=== PATIENT | female | born 1940 | race Caucasian/White ===

== ENCOUNTER 2023-03-09 11:41 | Inpatient (IN) | payer MEDICARE, OTHER ==
[~2023-03-09] VITALS: Ht 162.6 cm; Wt 68.9 kg
--- NOTE | 2023-03-09 11:42 | NUR ---
Dr Carrizales at the bedside for MSE.
[2023-03-09 12:20] LABS: HEMATOCRIT 38.6 % (31.2-41.9); MEAN CORPUSCULAR HEMOGLOBIN 30.3 uug (24.7-32.8); MEAN CORPUSCULAR VOLUME 91.6 fL (75.5-95.3); PLATELET COUNT (AUTO) 180 K/uL (179-408)
--- NOTE | 2023-03-09 12:30 | NUR ---
Pt requested Ensure for lunch. Ensure given and pt drank w/ good appettite. No cc of pain.
[2023-03-09 12:43] LABS: CARBON DIOXIDE 26 mmol/L (21-32); CHLORIDE 105 mmol/L (98-107); CREATININE 0.9 mg/dL (0.6-1.3); POTASSIUM 4.4 mmol/L (3.5-5.1); UREA NITROGEN, BLOOD 29 mg/dL (7-18)
[2023-03-09 12:56] LABS: ALANINE AMINOTRANSFERASE 9 U/L (14-59); ALKALINE PHOSPHATASE 62 U/L (50-136); ASPARTATE AMINOTRANSFERASE < 5 U/L (15-37); BILIRUBIN,DIRECT 0.1 mg/dL (0.0-0.2); BILIRUBIN,TOTAL 0.4 mg/dL (0.2-1.0); TOTAL PROTEIN, SERUM 7.2 g/dL (6.4-8.2)
[2023-03-09 13:07] LABS: ACETAMINOPHEN < 2.0 ug/mL (10-30)
[2023-03-09] MEDS ORDERED: FOLI1TAB27 PO (13:14)
[2023-03-09] MEDS ORDERED: LORA0.5T48 PO (13:14)
[2023-03-09] MEDS ORDERED: GABA-532 PO (13:14)
[2023-03-09] MEDS ORDERED: IBUP-1953 PO (13:14)
[2023-03-09] MEDS ORDERED: DEXT37.54 PO (13:14)
[2023-03-09] MEDS ORDERED: DIPH25CA83 PO (13:14)
[2023-03-09] MEDS ORDERED: NA P133E RC (13:14)
[2023-03-09] MEDS ORDERED: BISA10SU61 RC (13:14)
[2023-03-09] MEDS ORDERED: ATOR10TA PO (13:14)
[2023-03-09] MEDS ORDERED: BENZ0.5T43 PO (13:14)
[2023-03-09] MEDS ORDERED: ASCO500C6 PO (13:14)
[2023-03-09] MEDS ORDERED: CLON0.1T PO (13:14)
[2023-03-09] MEDS ORDERED: CRAN250C PO (13:14)
[2023-03-09] MEDS ORDERED: RISP0.5T5 PO ×2 (13:19)
[2023-03-09] MEDS ORDERED: AMLO10TA4 PO (13:19)
[2023-03-09] MEDS ORDERED: SERT50TA PO (13:19)
[2023-03-09] MEDS ORDERED: MELA3CAP2 PO (13:19)
[2023-03-09] MEDS ORDERED: METO-357 PO (13:19)
[2023-03-09] MEDS ORDERED: MAGN400C PO (13:19)
[2023-03-09] MEDS ORDERED: MULT-213 PO (13:19)
[2023-03-09] MEDS ORDERED: CALC500T13 PO (13:19)
[2023-03-09] MEDS ORDERED: ACET325C7 PO (13:19)
[2023-03-09] MEDS ORDERED: PANT40TA49 PO (13:19)
--- NOTE | 2023-03-09 13:20 | NUR ---
Pt medically cleared by Dr Carrizales. Notified Higinio Pereira from PET for psych eval.
--- NOTE | 2023-03-09 13:32 | NUR ---
Patient is resting comfortably in bed with eyes closed, NAD noted.
[2023-03-09 14:58] LABS: *BILIRUBIN,URIN NEGATIVE (NEGATIVE); *BLOOD, URINE NEGATIVE (NEGATIVE); *CLARITY,URINE CLEAR (CLEAR); *COLOR,URINE YELLOW (YELLOW); UGLUCOSE NEGATIVE (NEGATIVE)
[2023-03-09 14:59] LABS: *KETONES,URINE NEGATIVE (NEGATIVE); *UROBILINOGEN,URINE 0.2 E.U./dl (NORMAL); LEUKOCYTE ESTERASE ,URINE 2+ (NEGATIVE); NITRITE, URINE NEGATIVE (NEGATIVE)
--- NOTE | 2023-03-09 15:00 | NUR ---
Pt yells for staff and not cooperative w/ directions. Dr Carrizales speaking to pt for plan of care.
[2023-03-09 15:06] LABS: BACTERIA,URINE MODERATE /HPF (NONE SEEN); RBC,URINE NONE SEEN /HPF (0-3); SQUAMOUS EPITHELIAL CELL,UR FEW /HPF (NONE SEEN)
--- NOTE | 2023-03-09 15:10 | NUR ---
Assissted pt to bathroom, unsteady gait and moderate assisstance, urine collected and sent to LAB.
--- NOTE | 2023-03-09 15:28 | NUR ---
Crystal from [facility] at the bedside for psych eval.
[2023-03-09] MEDS ORDERED: CEphaleXIN 500 MG CAPSULE ONE (15:35)
[2023-03-09] MEDS ORDERED: LORAZEPAM 1 MG TABLET ONE (15:35)
[2023-03-09 15:43] LABS: *AMPHETAMINE, URINE NEGATIVE (NEGATIVE); *CANNABINOID, URINE NEGATIVE (NEGATIVE); *COCCAINE, URINE NEGATIVE (NEGATIVE); *PHENCYCLIDINE SCREEN,URINE NEGATIVE (NEGATIVE)
[2023-03-09] MEDS ORDERED: LORAZEPAM 0.5 MG TABLET PO ONE (15:45)
[2023-03-09] MEDS ORDERED: CEphaleXIN 500 MG CAPSULE PO ONE (15:45)
--- NOTE | 2023-03-09 15:55 | NUR ---
Pt placed on 5150 hold for GD and DTO by PET.
[2023-03-09] MEDS ORDERED: MAGNESIUM HYDROXIDE 30 ML LIQUID UDC PO PRN (16:15)
[2023-03-09] MEDS ORDERED: BLOOD SUGAR DIAGNOSTIC 1 EACH STRIP VI ONE (16:15)
[2023-03-09] MEDS ORDERED: MAG HYDROX/AL HYDROX/SIMETH 30 ML LIQUID UDC PO PRN (16:15)
[2023-03-09] MEDS ORDERED: ACETAMINOPHEN 325 MG TABLET PO PRN (16:15)
--- NOTE | 2023-03-09 16:46 | NUR ---
Patient refused EKG, notify RN.
[2023-03-09 16:47] VITALS: BP 162/56; TEMP 98.2; O2SAT 97
--- NOTE | 2023-03-09 16:53 | NUR ---
Admission Note: Admitted a case of 83 years old female from [facility] with history of Encephalopathy, HTN, Pacemaker, COPD, Asthma, Diabetes type 2, Schizophrenia etc. Patient previously diagnosed with Psychosis NOS. Patient is on 5150 status. Patient arrived in a wheel chair accompanied by RN. Initial report given by Opal MURRELL. On admission patient was cooperative to physical assessment and vital signs. Patient ambulates with assistance, lower extremities weakness, unsteady gait. Upon face to face, patient appeared alert, oriented to person and place, anxious and agitated. Patient denies any suicidal or homicidal ideations nor any hallucinations or delusions. Patient refused signing and consenting to all admission documents. Patient was also offered brief orientation to unit rules and policies and given copy of patient's rights handbook. Patient belongings were accounted and contrabands were removed. Psychiatrist Dr. Adamson and Medical physician Bella were informed and orders were carried out. Patient is currently free from pain or any discomfort. Emotional support provided. Fall and safety precautions implemented.
[2023-03-09 20:15] VITALS: BP 178/62; TEMP 98.2; O2SAT 99
[2023-03-09] MEDS: ZOLPIDEM 5 MG TABLET PO PRN (21:01)
[2023-03-10] MEDS: LORAZEPAM 1 MG TABLET PO PRN ×2 (01:43→18:39)
--- NOTE | 2023-03-10 05:11 | NUR ---
Received patient in the room, with eyes closed, easily arousable and responsive to name. A&0x2. She is demanding and yells to call attention. Patient is labile, anxious and irritable. Needs need to be met in timely manner as she won't stop yelling disturbing the unit. Need setting limit of behavior. She denies SI/VH/AH. Prn's given, ativan and ambien. Patient slept 5 hours. Refused shower when offered. Safety strategies are in placed
[2023-03-10 07:27] LABS: HEMATOCRIT 40.2 % (31.2-41.9); MEAN CORPUSCULAR HEMOGLOBIN 31.4 uug (24.7-32.8); PLATELET COUNT (AUTO) 202 K/uL (179-408)
[2023-03-10 07:58] VITALS: BP 164/69; TEMP 98; O2SAT 98
[2023-03-10 08:17] LABS: CARBON DIOXIDE 26 mmol/L (21-32); CHLORIDE 104 mmol/L (98-107); CREATININE 0.9 mg/dL (0.6-1.3); POTASSIUM 4.1 mmol/L (3.5-5.1); UREA NITROGEN, BLOOD 29 mg/dL (7-18)
[2023-03-10] MEDS: DIVALPROEX SPRINKLE 125 MG CAP.SPRINK PO SCH ×3 (09:28→17:42)
[2023-03-10] MEDS: risperiDONE 1 MG TABLET PO SCH ×2 (09:28→21:12)
[2023-03-10] MEDS: BENZTROPINE MESYLATE 0.5 MG TABLET PO SCH ×3 (09:28→17:42)
[2023-03-10] MEDS ORDERED: OLANZAPINE 10 MG VIAL IM ONE (12:30)
--- NOTE | 2023-03-10 12:40 | NUR ---
Patient became verbally abusive, agitated, yelling and screaming, aggressive, threatening physical harm to environment which could lead to injury, high potential for violence, striking out at others. Psychiatrist was informed and prescribed Zyprexa 5 mg IM, will be monitored for effectiveness. Four people were necessary to administer medication, no force needed. Reassurance given. Fall and safety precautions implemented.
[2023-03-10 15:12] VITALS: BP 160/63; TEMP 98; O2SAT 98
--- NOTE | 2023-03-10 16:07 | NUR ---
Patient is very demanding, needy, attention seeker, verbally abusive, irritable and agitated at times. Patient yells for help the entire day with no apparent reason. Patient is isolative and depressed. Patient is compliant with medications. Reassurance given. Fall and safety precautions implemented.
--- NOTE | 2023-03-10 16:11 | NUR ---
SW Initial Discharge Note: Pt is currently resides at [facility] [address] [address] [id number] . SW will continue to work with pt, facility and MD to ensure a safe and proper discharge plan. Pt does not have any family contact at this time. SW will continue to follow-up. Pt continues to refuse to participate in an assessment with this SW and provide information.
--- NOTE | 2023-03-10 17:13 | NUR ---
Jhoana Bateman from [facility], Microbiology, called to inform that patient is MRSA nares positive. Circuit Walker was informed and prescribed Bactroban q 12hr for 7 days.
[2023-03-10] MEDS: MUPIROCIN 2% OINT 22 GM TUBE NS SCH ×2 (18:06→21:18)
--- NOTE | 2023-03-10 18:44 | NUR ---
Ativan 1 mg is given at 18:39 for agitation and anxiety, will be monitored for effectiveness.
[2023-03-10] MEDS ORDERED: BISACODYL 10 MG SUPP.RECT RC PRN (18:45)
[2023-03-10] MEDS ORDERED: CLONIDINE HCL 0.1 MG TABLET PO PRN (18:45)
[2023-03-10] MEDS ORDERED: FLEET ENEMA 133 ML BOTTLE RC PRN (18:45)
[2023-03-10] MEDS: METOPROLOL SUCCINATE XL 50 MG TAB.SR.24H PO SCH (18:57)
[2023-03-10 20:00] VITALS: BP 136/70; TEMP 98; O2SAT 99
[2023-03-10] MEDS: MELATONIN 3 MG TABLET PO SCH (21:12)
[2023-03-10] MEDS: ATORVASTATIN 10 MG TABLET PO SCH (21:12)
[2023-03-10] MEDS: CEphaleXIN 500 MG CAPSULE PO SCH (21:15)
[2023-03-10] MEDS: GABAPENTIN 300 MG CAPSULE PO SCH (21:16)
[2023-03-11] MEDS: LORAZEPAM 1 MG TABLET PO PRN (02:10)
[2023-03-11] MEDS: CEphaleXIN 500 MG CAPSULE PO SCH ×3 (05:14→20:34)
[2023-03-11] MEDS: GABAPENTIN 300 MG CAPSULE PO SCH ×3 (05:14→20:34)
[2023-03-11] MEDS: PANTOPRAZOLE SODIUM 40 MG TABLET.DR PO SCH (06:11)
[2023-03-11 07:30] VITALS: BP 136/60; TEMP 98; O2SAT 98
[2023-03-11] MEDS: BENZTROPINE MESYLATE 0.5 MG TABLET PO SCH ×3 (08:26→16:40)
[2023-03-11] MEDS: MAGNESIUM OXIDE 400 MG TABLET PO SCH (08:26)
[2023-03-11] MEDS: DIVALPROEX SPRINKLE 125 MG CAP.SPRINK PO SCH ×3 (08:26→16:40)
[2023-03-11] MEDS: ASCORBIC ACID 500 MG TABLET PO SCH (08:26)
[2023-03-11] MEDS: MULTIVITAMINS,THERAPEUTIC TABLET PO SCH (08:26)
[2023-03-11] MEDS: AMLODIPINE 10 MG TABLET PO SCH (08:27)
[2023-03-11] MEDS: risperiDONE 1 MG TABLET PO SCH ×2 (08:27→20:33)
[2023-03-11] MEDS: FOLIC ACID 1 MG TABLET PO SCH (08:27)
[2023-03-11] MEDS: MUPIROCIN 2% OINT 22 GM TUBE NS SCH ×2 (08:28→20:34)
--- NOTE | 2023-03-11 14:46 | NUR ---
Patient is demanding, needy, argumentative, manipulative, loud, angry, anxious and agitated most of the time, poor impulse control and judgement. Patient pretends that she cannot ambulate, slides from the wheel chair to the floor and screams for help. Patient states "I fell and you don't care! Lift me up now!" When she does not know staff is watching her, patient ambulates and transfers herself from chair to bed without problems. Patient is A/O X 2 to person, place. Reality orientation provided. Fall and safety precautions implemented.
[2023-03-11 15:10] VITALS: BP 142/70; TEMP 98; O2SAT 98
[2023-03-11] MEDS: METOPROLOL SUCCINATE XL 50 MG TAB.SR.24H PO SCH (17:04)
[2023-03-11 19:54] VITALS: BP 137/50; TEMP 97.6; O2SAT 99
[2023-03-11] MEDS: MELATONIN 3 MG TABLET PO SCH (20:33)
[2023-03-11] MEDS: ATORVASTATIN 10 MG TABLET PO SCH (20:33)
[2023-03-11] MEDS: ZOLPIDEM 5 MG TABLET PO PRN (21:22)
--- NOTE | 2023-03-12 05:18 | NUR ---
Received patient at the nurses station, in a wheelchair and yelling " Somebody took my blanket". Then the patient went back to her room and started calling her roommate " Lukas pineda. Give me my blue Dodger blanket back ! " This television script writer informed the patient that there was no blanket listed on her admit inventory list. Patient stated " Oh ya, I forgot. It is on my bed at home". Attention seeking , manipulative, demanding behaviors were noted and continued for some time. Clear boundaries and expectations were discussed. The patient responded positively to them. After giving medications and setting limits, this patient was calm and quiet the rest of the night. Safety Stratiges are in place. Continuing to monitor the patient for further erratic and behavior escalation. Sleep hours are 7.00 .
[2023-03-12] MEDS: PANTOPRAZOLE SODIUM 40 MG TABLET.DR PO SCH (06:03)
[2023-03-12] MEDS: GABAPENTIN 300 MG CAPSULE PO SCH ×3 (06:03→20:49)
[2023-03-12] MEDS: CEphaleXIN 500 MG CAPSULE PO SCH ×3 (06:03→20:50)
--- NOTE | 2023-03-12 07:10 | NUR ---
[facility] Nursing notes: patient up and about in W/C, denies pain or discomforts, fall and safety precaution implemented, emotional support provided, will continue to monitor.
[2023-03-12 07:51] VITALS: BP 144/50; TEMP 97.6; O2SAT 96
[2023-03-12] MEDS: MULTIVITAMINS,THERAPEUTIC TABLET PO SCH (09:02)
[2023-03-12] MEDS: MAGNESIUM OXIDE 400 MG TABLET PO SCH (09:02)
[2023-03-12] MEDS: ASCORBIC ACID 500 MG TABLET PO SCH (09:02)
[2023-03-12] MEDS: risperiDONE 1 MG TABLET PO SCH ×2 (09:02→20:49)
[2023-03-12] MEDS: BENZTROPINE MESYLATE 0.5 MG TABLET PO SCH ×3 (09:02→17:01)
[2023-03-12] MEDS: DIVALPROEX SPRINKLE 125 MG CAP.SPRINK PO SCH ×3 (09:02→17:00)
[2023-03-12] MEDS: AMLODIPINE 10 MG TABLET PO SCH (09:02)
[2023-03-12] MEDS: MUPIROCIN 2% OINT 22 GM TUBE NS SCH ×2 (09:03→20:50)
[2023-03-12] MEDS: FOLIC ACID 1 MG TABLET PO SCH (09:03)
[2023-03-12] MEDS: ACETAMINOPHEN 325 MG TABLET PO PRN (11:11)
--- NOTE | 2023-03-12 13:09 | NUR ---
[facility]PS Nursing Notes: Patient up and about, making multiple requests, all needs met, patient stated "I want go home, I never hit anyone", patient crying when verbalizing she what to go back to SNF. Emotional support provided. Will continue to monitor.
[2023-03-12 15:54] VITALS: BP 137/54; TEMP 98; O2SAT 100
[2023-03-12] MEDS: METOPROLOL SUCCINATE XL 50 MG TAB.SR.24H PO SCH (17:03)
[2023-03-12 19:39] VITALS: BP 136/45; TEMP 98; O2SAT 98
[2023-03-12] MEDS: MELATONIN 3 MG TABLET PO SCH (20:49)
[2023-03-12] MEDS: HYDROXYZINE PAMOATE 25 MG CAPSULE PO PRN (20:49)
[2023-03-12] MEDS: ATORVASTATIN 10 MG TABLET PO SCH (20:49)
[2023-03-12] MEDS: ZOLPIDEM 5 MG TABLET PO PRN (21:32)
[2023-03-13] MEDS: CEphaleXIN 500 MG CAPSULE PO SCH ×3 (06:27→20:08)
[2023-03-13] MEDS: GABAPENTIN 300 MG CAPSULE PO SCH ×3 (06:27→20:08)
[2023-03-13] MEDS: PANTOPRAZOLE SODIUM 40 MG TABLET.DR PO SCH (06:27)
[2023-03-13 07:48] VITALS: BP 151/51; TEMP 97.5; O2SAT 96
[2023-03-13] MEDS: FOLIC ACID 1 MG TABLET PO SCH (08:34)
[2023-03-13] MEDS: AMLODIPINE 10 MG TABLET PO SCH (08:34)
[2023-03-13] MEDS: risperiDONE 1 MG TABLET PO SCH ×2 (08:34→20:07)
[2023-03-13] MEDS: ASCORBIC ACID 500 MG TABLET PO SCH (08:35)
[2023-03-13] MEDS: DIVALPROEX SPRINKLE 125 MG CAP.SPRINK PO SCH ×3 (08:36→16:51)
[2023-03-13] MEDS: BENZTROPINE MESYLATE 0.5 MG TABLET PO SCH ×3 (08:36→16:52)
[2023-03-13] MEDS: MUPIROCIN 2% OINT 22 GM TUBE NS SCH ×2 (08:37→20:06)
[2023-03-13] MEDS: MAGNESIUM OXIDE 400 MG TABLET PO SCH (08:37)
[2023-03-13] MEDS: MULTIVITAMINS,THERAPEUTIC TABLET PO SCH (08:38)
--- NOTE | 2023-03-13 14:42 | NUR ---
Patient is alert and oriented x2 confused and disoriented x2, needy and intrusive ,constant yelling from her room asking for help. compliant with all medication. able to transfer self from bed to chair , denies any pain or discomfort will continue close monitoring for safety.
[2023-03-13 15:56] VITALS: BP 144/53; TEMP 98.9; O2SAT 95
[2023-03-13] MEDS: METOPROLOL SUCCINATE XL 50 MG TAB.SR.24H PO SCH (16:55)
[2023-03-13] MEDS: HYDROXYZINE PAMOATE 25 MG CAPSULE PO PRN (20:06)
[2023-03-13] MEDS: ACETAMINOPHEN 325 MG TABLET PO PRN (20:06)
[2023-03-13] MEDS: MELATONIN 3 MG TABLET PO SCH (20:07)
[2023-03-13] MEDS: ATORVASTATIN 10 MG TABLET PO SCH (20:08)
[2023-03-13 21:47] VITALS: BP 113/47; TEMP 98.1; O2SAT 96
[2023-03-14] MEDS: ACETAMINOPHEN 325 MG TABLET PO PRN ×2 (02:47→20:05)
[2023-03-14] MEDS: ZOLPIDEM 5 MG TABLET PO PRN ×2 (02:48→21:44)
--- NOTE | 2023-03-14 03:35 | NUR ---
The patient's behavior tonight, has been a decline from the past previous nights. This patient is not respecting or following unit rules at this time. Periodically, the patient yells out " HELP " from the top of her lungs, rattling the rogers with the volume and waking those that are sleeping. She is demanding attention and demanding assistance with the simplest of tasks, all the while knowing that she is capable of doing them for herself, can be frustrating for the staff and a waste of time. The patients attitude has been aggressive, rude, thoughtless and thankless. Not to mention that everything needs to be done immediately, or the yelling starts all over, as an attempt to manipulate or control the situation. When this underwriter solicitation director tries to understand or discuses anything meaningful with the patient her response has been " Get out of here. I don' want to talk to you". Or " Shut up". Unfortunately, the patient is never satisfied with the assistance being provided. There is ongoing verbal insults and blatant lying for unknown reasons . Patient has been showing poor insight and a lack of situational awareness having a negative impact on the environment and any positive energy being created on this unit. Safety Stratiges are in place. Medications will continue to be provided as ordered, as this underwriter solicitation director is able to display unwavering patience... With this patient.
[2023-03-14] MEDS: GABAPENTIN 300 MG CAPSULE PO SCH ×3 (05:57→21:18)
[2023-03-14] MEDS: CEphaleXIN 500 MG CAPSULE PO SCH ×3 (05:58→21:18)
[2023-03-14] MEDS: PANTOPRAZOLE SODIUM 40 MG TABLET.DR PO SCH (05:58)
[2023-03-14 07:54] VITALS: BP 134/45; TEMP 97.6; O2SAT 98
[2023-03-14] MEDS: ASCORBIC ACID 500 MG TABLET PO SCH (08:44)
[2023-03-14] MEDS: MAGNESIUM OXIDE 400 MG TABLET PO SCH (08:44)
[2023-03-14] MEDS: HYDROXYZINE PAMOATE 25 MG CAPSULE PO PRN (08:44)
[2023-03-14] MEDS: BENZTROPINE MESYLATE 0.5 MG TABLET PO SCH ×3 (08:45→16:15)
[2023-03-14] MEDS: AMLODIPINE 10 MG TABLET PO SCH (08:45)
[2023-03-14] MEDS: DIVALPROEX SPRINKLE 125 MG CAP.SPRINK PO SCH ×3 (08:45→16:15)
[2023-03-14] MEDS: MULTIVITAMINS,THERAPEUTIC TABLET PO SCH (08:46)
[2023-03-14] MEDS: MUPIROCIN 2% OINT 22 GM TUBE NS SCH ×2 (08:47→21:44)
[2023-03-14] MEDS: FOLIC ACID 1 MG TABLET PO SCH (08:47)
[2023-03-14] MEDS: risperiDONE 0.5 MG TABLET PO SCH ×2 (08:48→20:04)
--- NOTE | 2023-03-14 15:14 | NUR ---
patient able to transferred self from bed to wheel chair , vert needy and demanding ,yelling out from her room asking for help at all time.unable to follow direction ,compliant with all medication.
[2023-03-14] MEDS: METOPROLOL SUCCINATE XL 50 MG TAB.SR.24H PO SCH (16:15)
[2023-03-14] MEDS: MELATONIN 3 MG TABLET PO SCH (20:04)
[2023-03-14] MEDS: ATORVASTATIN 10 MG TABLET PO SCH (20:04)
--- NOTE | 2023-03-14 20:30 | NUR ---
received patent in his room in bed. she is noted awake A/O x 2. she is anxious, attention seeker. she is constantly yelling, "Help, help". calling for the nurse multiple times for various reason, "I need to be cover". " I am cool, hot" "I need ativan, I need ambien. Put my head up or down. i need water". Patient needs constant reality orientation and to set limits for her behavior. all her needs are met. she was reassured for her safety. safety and fall precautions are in place. she was given PO fluids and snacks. will continue to monitor.
[2023-03-14 20:49] VITALS: BP 133/57; TEMP 98; O2SAT 98
[2023-03-15] MEDS: HYDROXYZINE PAMOATE 25 MG CAPSULE PO PRN ×2 (01:26→14:12)
--- NOTE | 2023-03-15 01:30 | NUR ---
Patient was helped to the bathroom and back to bed. All her needs are met. She stated she wanted Ambien, she was remained that Ambien was given earlier. she continue yelling, "help help" but when responding she states, "Move the curtains, i need another pillow". etc. Vistaril 25mg PO PRN was given for anxiety. will continue to set limits for her behavior.
--- NOTE | 2023-03-15 06:17 | NUR ---
PATIENT SLEPT FOR APPROX 5 HRS THROUGH THE NIGHT. SHE WAS NOTED RESTLESS AND YELLING "HELP, HELP" LATE LAST NIGHT, BUT SHE WAS ABLE TO FALL BACK ASLEEP. SHE IS NOW CONTINUE ASLEEP IN HER BED. WILL CONTINUE TO MONITOR.
[2023-03-15] MEDS: PANTOPRAZOLE SODIUM 40 MG TABLET.DR PO SCH (06:49)
[2023-03-15] MEDS: CEphaleXIN 500 MG CAPSULE PO SCH (06:49)
[2023-03-15] MEDS: GABAPENTIN 300 MG CAPSULE PO SCH ×3 (06:49→21:03)
[2023-03-15 07:37] VITALS: BP 166/61; TEMP 97.7; O2SAT 99
--- NOTE | 2023-03-15 08:30 | NUR ---
Alert, oriented x 3, anxious, needy, repeated requests, yelling for help. Redirected
[2023-03-15] MEDS: MUPIROCIN 2% OINT 22 GM TUBE NS SCH ×2 (08:34→20:40)
[2023-03-15] MEDS: BENZTROPINE MESYLATE 0.5 MG TABLET PO SCH ×3 (08:35→17:29)
[2023-03-15] MEDS: DIVALPROEX SPRINKLE 125 MG CAP.SPRINK PO SCH ×3 (08:35→17:29)
[2023-03-15] MEDS: AMLODIPINE 10 MG TABLET PO SCH (08:36)
[2023-03-15] MEDS: FOLIC ACID 1 MG TABLET PO SCH (08:36)
[2023-03-15] MEDS: MAGNESIUM OXIDE 400 MG TABLET PO SCH (08:36)
[2023-03-15] MEDS: risperiDONE 0.5 MG TABLET PO SCH ×2 (08:36→20:09)
[2023-03-15] MEDS: ASCORBIC ACID 500 MG TABLET PO SCH (08:37)
[2023-03-15] MEDS: MULTIVITAMINS,THERAPEUTIC TABLET PO SCH (08:37)
--- NOTE | 2023-03-15 12:30 | NUR ---
OOB with PT ambulated with FWW. Refused to eat lunch but requested Glucerna supplement.
--- NOTE | 2023-03-15 14:30 | NUR ---
Anxious, repeated requests, yelling. Redirected. Vistaril given as ordered.
[2023-03-15 15:41] VITALS: BP 102/62; TEMP 98.4; O2SAT 97
[2023-03-15] MEDS: METOPROLOL SUCCINATE XL 50 MG TAB.SR.24H PO SCH (17:29)
[2023-03-15] MEDS: ACETAMINOPHEN 325 MG TABLET PO PRN (19:44)
[2023-03-15 19:54] VITALS: BP 137/58; TEMP 98.2; O2SAT 97
[2023-03-15] MEDS: MELATONIN 3 MG TABLET PO SCH (20:09)
[2023-03-15] MEDS: ATORVASTATIN 10 MG TABLET PO SCH (20:09)
[2023-03-15] MEDS: ZOLPIDEM 5 MG TABLET PO PRN (21:03)
[2023-03-16] MEDS: PANTOPRAZOLE SODIUM 40 MG TABLET.DR PO SCH (06:07)
[2023-03-16] MEDS ORDERED: GABAPENTIN 300 MG CAPSULE ONE (06:10)
[2023-03-16] MEDS: GABAPENTIN 300 MG CAPSULE PO SCH ×3 (06:13→21:04)
[2023-03-16 08:08] VITALS: BP 138/74; TEMP 98; O2SAT 98
[2023-03-16] MEDS: ASCORBIC ACID 500 MG TABLET PO SCH (08:50)
[2023-03-16] MEDS: BENZTROPINE MESYLATE 0.5 MG TABLET PO SCH ×3 (08:50→17:27)
[2023-03-16] MEDS: DIVALPROEX SPRINKLE 125 MG CAP.SPRINK PO SCH ×4 (08:50→20:13)
[2023-03-16] MEDS: MULTIVITAMINS,THERAPEUTIC TABLET PO SCH (08:50)
[2023-03-16] MEDS: FOLIC ACID 1 MG TABLET PO SCH (08:50)
[2023-03-16] MEDS: MAGNESIUM OXIDE 400 MG TABLET PO SCH (08:50)
[2023-03-16] MEDS: risperiDONE 0.5 MG TABLET PO SCH ×2 (08:51→20:14)
[2023-03-16] MEDS: AMLODIPINE 10 MG TABLET PO SCH (08:52)
[2023-03-16] MEDS: MUPIROCIN 2% OINT 22 GM TUBE NS SCH ×2 (08:52→20:14)
[2023-03-16] MEDS: ACETAMINOPHEN 325 MG TABLET PO PRN ×2 (11:38→20:13)
[2023-03-16 15:46] VITALS: BP 115/51; TEMP 98; O2SAT 98
--- NOTE | 2023-03-16 15:49 | NUR ---
Patient is argumentative, demanding, needy, compliant with medications, needs to be redirected most of the time, cooperative with nursing care. Patient is A/O X 3 to person, place. Reality orientation provided. Fall and safety precautions implemented.
[2023-03-16] MEDS: METOPROLOL SUCCINATE XL 50 MG TAB.SR.24H PO SCH (17:29)
[2023-03-16 20:06] VITALS: BP 146/62; TEMP 98.1; O2SAT 98
[2023-03-16] MEDS: ATORVASTATIN 10 MG TABLET PO SCH (20:13)
[2023-03-16] MEDS: MELATONIN 3 MG TABLET PO SCH (20:14)
[2023-03-16] MEDS: ZOLPIDEM 5 MG TABLET PO PRN (21:05)
[2023-03-16] MEDS: CALCIUM CARBONATE 500 MG TAB.CHEW PO PRN (21:10)
--- NOTE | 2023-03-16 21:41 | NUR ---
received patent in her room in bed. she is noted awake A/O x 2. she is anxious, restless. she is constantly yelling, and calling for the nurse multiple times for various reason, "I need to be cover". "I need ativan, I need ambien" Put my head up or down. i need water". Patient needs constant reality orientation and to set limits for her behavior. Her V/S are stable. all her needs are met. she was reassured for her safety. safety and fall precautions are in place. she was given PO fluids and snacks. will continue to monitor.
[2023-03-17] MEDS: HYDROXYZINE PAMOATE 25 MG CAPSULE PO PRN (03:03)
[2023-03-17] MEDS: PANTOPRAZOLE SODIUM 40 MG TABLET.DR PO SCH (06:22)
[2023-03-17] MEDS: GABAPENTIN 300 MG CAPSULE PO SCH ×3 (06:22→22:37)
--- NOTE | 2023-03-17 06:37 | NUR ---
PATIENT SLEPT FOR APPROX 4 HRS THROUGH THE NIGHT. HE IS COMPLIANT WITH MEDICATION REGIMENT DIET AND PLAN OF CARE. SHE IS ATTENTION SEEKER. SHE HAD 2 LOOSE STOOL DURING THE SHIFT. WILL MONITOR BM. WILL ENDORSE ACCORDINGLY.
[2023-03-17 08:01] VITALS: BP 132/51; TEMP 98; O2SAT 98
[2023-03-17] MEDS: DIVALPROEX SPRINKLE 125 MG CAP.SPRINK PO SCH ×4 (08:53→20:48)
[2023-03-17] MEDS: ASCORBIC ACID 500 MG TABLET PO SCH (08:53)
[2023-03-17] MEDS: BENZTROPINE MESYLATE 0.5 MG TABLET PO SCH ×3 (08:54→17:33)
[2023-03-17] MEDS: MAGNESIUM OXIDE 400 MG TABLET PO SCH (08:54)
[2023-03-17] MEDS: risperiDONE 1 MG TABLET PO SCH ×2 (08:54→17:31)
[2023-03-17] MEDS: FOLIC ACID 1 MG TABLET PO SCH (08:54)
[2023-03-17] MEDS: MULTIVITAMINS,THERAPEUTIC TABLET PO SCH (08:54)
[2023-03-17] MEDS: AMLODIPINE 10 MG TABLET PO SCH (08:55)
[2023-03-17] MEDS: MUPIROCIN 2% OINT 22 GM TUBE NS SCH ×2 (08:56→20:49)
[2023-03-17] MEDS ORDERED: risperiDONE 0.5 MG TABLET PO SCH (09:00)
[2023-03-17 15:12] VITALS: BP 137/54; TEMP 98; O2SAT 98
--- NOTE | 2023-03-17 16:32 | NUR ---
Patient is needy, demanding, argumentative, hyperverbal, compliant with medications, cooperative with nursing care, forgetful, disorganized. Patient is A/O X 2 to person, place. Patient needs to be redirected most of the time. Patient is encourage to verbalize concerns. Fall and safety precautions implemented.
[2023-03-17] MEDS: METOPROLOL SUCCINATE XL 50 MG TAB.SR.24H PO SCH (17:33)
[2023-03-17] MEDS: GLUCERNA SHAKE 237 ML CAN PO SCH (17:34)
[2023-03-17 19:35] VITALS: BP 136/42; TEMP 98.2; O2SAT 98
[2023-03-17] MEDS: ATORVASTATIN 10 MG TABLET PO SCH (20:48)
[2023-03-17] MEDS: risperiDONE 2 MG TABLET PO SCH (20:48)
[2023-03-17] MEDS: MELATONIN 3 MG TABLET PO SCH (20:48)
[2023-03-18] MEDS: CALCIUM CARBONATE 500 MG TAB.CHEW PO PRN (01:07)
[2023-03-18] MEDS: ZOLPIDEM 5 MG TABLET PO PRN ×2 (02:10→21:29)
[2023-03-18] MEDS: GABAPENTIN 300 MG CAPSULE PO SCH ×3 (05:55→21:28)
[2023-03-18] MEDS: PANTOPRAZOLE SODIUM 40 MG TABLET.DR PO SCH (07:16)
--- NOTE | 2023-03-18 07:30 | NUR ---
GPS nursing notes: Patient is in bed asleep at this time with no S/S of distress, will continue to monitor.
[2023-03-18 08:02] VITALS: BP 120/46; TEMP 97.9; O2SAT 98
[2023-03-18] MEDS: MAGNESIUM OXIDE 400 MG TABLET PO SCH (08:08)
[2023-03-18] MEDS: BENZTROPINE MESYLATE 0.5 MG TABLET PO SCH ×3 (08:08→16:43)
[2023-03-18] MEDS: FOLIC ACID 1 MG TABLET PO SCH (08:08)
[2023-03-18] MEDS: ASCORBIC ACID 500 MG TABLET PO SCH (08:08)
[2023-03-18] MEDS: AMLODIPINE 10 MG TABLET PO SCH (08:08)
[2023-03-18] MEDS: MULTIVITAMINS,THERAPEUTIC TABLET PO SCH (08:08)
[2023-03-18] MEDS: DIVALPROEX SPRINKLE 125 MG CAP.SPRINK PO SCH ×4 (08:08→20:28)
[2023-03-18] MEDS: risperiDONE 1 MG TABLET PO SCH ×2 (08:08→16:43)
[2023-03-18] MEDS: GLUCERNA SHAKE 237 ML CAN PO SCH ×3 (08:09→16:43)
[2023-03-18] MEDS: HYDROXYZINE PAMOATE 25 MG CAPSULE PO PRN ×2 (12:45→20:28)
[2023-03-18 16:22] VITALS: BP 144/49; TEMP 97.9; O2SAT 98
--- NOTE | 2023-03-18 16:57 | NUR ---
[facility]PS Nursing notes: Patient medication compliant, no of distress noted, up in W/C for short period at the time, refuses to participate with groups, patient making multiple request through the day, need constant verbal redirecting, but follow directions. fall and safety provided, emotional support provided.
[2023-03-18] MEDS: METOPROLOL SUCCINATE XL 50 MG TAB.SR.24H PO SCH (17:19)
[2023-03-18] MEDS: ACETAMINOPHEN 325 MG TABLET PO PRN (18:19)
[2023-03-18 19:46] VITALS: BP 132/48; TEMP 97.7; O2SAT 98
[2023-03-18] MEDS: risperiDONE 2 MG TABLET PO SCH (20:29)
[2023-03-18] MEDS: ATORVASTATIN 10 MG TABLET PO SCH (20:29)
[2023-03-18] MEDS ORDERED: MELATONIN 3 MG TABLET PO SCH (21:00)
[2023-03-19] MEDS: ACETAMINOPHEN 325 MG TABLET PO PRN (01:45)
--- NOTE | 2023-03-19 04:05 | NUR ---
Pt received laying in bed.Appears anxious ,constantly yelling and not following direction.Prn medication given as ordered. Compliant with taking medication. will continue to monitor and redirect as needed
[2023-03-19] MEDS: GABAPENTIN 300 MG CAPSULE PO SCH (05:50)
[2023-03-19] MEDS: PANTOPRAZOLE SODIUM 40 MG TABLET.DR PO SCH (05:51)
[2023-03-19 07:48] VITALS: BP 115/48; TEMP 98.5; O2SAT 98
[2023-03-19] MEDS: GLUCERNA SHAKE 237 ML CAN PO SCH ×2 (08:00→12:00)
[2023-03-19] MEDS: MAGNESIUM OXIDE 400 MG TABLET PO SCH (08:56)
[2023-03-19] MEDS: FOLIC ACID 1 MG TABLET PO SCH (08:56)
[2023-03-19] MEDS: MULTIVITAMINS,THERAPEUTIC TABLET PO SCH (08:56)
[2023-03-19] MEDS: DIVALPROEX SPRINKLE 125 MG CAP.SPRINK PO SCH (08:56)
[2023-03-19] MEDS: ASCORBIC ACID 500 MG TABLET PO SCH (08:56)
[2023-03-19 08:57] VITALS: BP 115/48
[2023-03-19] MEDS: risperiDONE 1 MG TABLET PO SCH (08:57)
[2023-03-19] MEDS: BENZTROPINE MESYLATE 0.5 MG TABLET PO SCH (08:57)
[2023-03-19] MEDS: AMLODIPINE 10 MG TABLET PO SCH (08:57)
--- NOTE | 2023-03-19 09:00 | NUR ---
Received pt in bed awake calm responding to her name A/O X3 . Pt use the wheelchair to ambulate and needs maximal assistance with her ADLs. Pt can be needy and demanding at times pt can voice her needs and can follow directions. Reassurance and emotional support provided. Safety measures in place. Continue to monitor for safety.
--- NOTE | 2023-03-19 12:31 | NUR ---
Received order to discharge pt to [facility] [phone] located at [address] [facility] via Ambulance transportation at 11AM. SW spoke with admin coordinator, Aga [phone] at the facility who states they are ready to accept the patient today in room 14B. Pt is aware and agreeable with discharge plan. Pt does not have any family contact. Pt is alert and oriented x3, is unable to plan for self-care at this time. Pt is willing to accept care at returning SNF, Pt denies SI/HI, AH/VH, SOB and pain. No acute distress noted. Emotional support provided. All belongings and valuables returned to the pt. Pt left unit at 12:30pm.
== END 2023-03-19 12:30 | DRG 885 ==
LOC: ER 11:41 → GPS 15:41
PROVIDERS: ADMIT Psychiatry & Neurology Psychiatry; ATTEND Internal Medicine
DX: F25.0 Schizoaffective disorder, bipolar type (principal); N39.0 Urinary tract infection, site not specified; F03.911 Unspecified dementia, unspecified severity, with agitation; F60.3 Borderline personality disorder; E78.5 Hyperlipidemia, unspecified; K21.9 Gastro-esophageal reflux disease without esophagitis; L98.9 Disorder of the skin and subcutaneous tissue, unspecified; R26.81 Unsteadiness on feet; E66.9 Obesity, unspecified; Z68.26 Body mass index [BMI] 26.0-26.9, adult; Z95.0 Presence of cardiac pacemaker; I49.9 Cardiac arrhythmia, unspecified; E11.9 Type 2 diabetes mellitus without complications; G40.909 Epilepsy, unspecified, not intractable, without status epilepticus; Z22.322 Carrier or suspected carrier of Methicillin resistant Staphylococcus aureus; D64.9 Anemia, unspecified; J44.9 Chronic obstructive pulmonary disease, unspecified; F41.9 Anxiety disorder, unspecified; I10 Essential (primary) hypertension; Z87.440 Personal history of urinary (tract) infections; Z20.822 Contact with and (suspected) exposure to COVID-19; Z91.81 History of falling
CPT/HCPCS: 36415; 80164; 85025; 93005; A4663; G0480; J2358

== ENCOUNTER 2023-07-30 01:35 | Inpatient (IN) | payer MEDICARE, OTHER ==
[~2023-07-30] VITALS: Ht 162.6 cm; Wt 63.5 kg
[~2023-07-30 01:35] MED LIST: ACET325C7 PO; AMLO10TA4 PO; ASCO500C6 PO; ATOR10TA PO; BENZ0.5T43 PO; BISA10SU61 RC; CALC500T13 PO; CLON0.1T PO; CRAN250C PO; DEXT37.54 PO; DIPH25CA83 PO; FOLI1TAB27 PO; GABA-532 PO; IBUP-1953 PO; MAGN400C PO; MELA3CAP2 PO; METO-357 PO; MULT-213 PO; NA P133E RC; PANT40TA49 PO
[2023-07-30] MEDS ORDERED: BISA10SU61 RC (02:03)
[2023-07-30] MEDS ORDERED: METO50TA16 PO (02:03)
[2023-07-30] MEDS ORDERED: RISP0.5T5 PO (02:03)
[2023-07-30] MEDS ORDERED: OLAN5TAB70 PO (02:03)
[2023-07-30] MEDS ORDERED: NA P133E RC (02:03)
[2023-07-30] MEDS ORDERED: SERT25TA PO (02:03)
[2023-07-30] MEDS ORDERED: MAGN400O6 PO (02:03)
[2023-07-30] MEDS ORDERED: LORA0.5T48 PO ×2 (02:03)
[2023-07-30] MEDS ORDERED: RISP2TAB85 PO (02:03)
[2023-07-30] MEDS ORDERED: ZOLP5TAB8 PO (02:03)
[2023-07-30] MEDS ORDERED: DIVA500T54 PO (02:03)
[2023-07-30] MEDS ORDERED: GABA-532 PO (02:03)
[2023-07-30 03:36] LABS: BASOPHILS # (AUTO) 0.1 K/UL (0.0-0.2); BASOPHILS % (AUTO) 0.8 % (0.0-2.0); EOSINOPHILS # (AUTO) 0.2 K/uL (0.0-0.7); EOSINOPHILS % (AUTO) 2.2 % (0.0-7.0); HEMATOCRIT 35.3 % (31.2-41.9); HEMOGLOBIN 12.3 g/dL (10.9-14.3); LYMPHOCYTES # (AUTO) 4.1 K/uL (0.8-4.8); LYMPHOCYTES % (AUTO) 47.2 % (20.5-51.5); MEAN CORPUSCULAR HEMOGLOBIN 33.3 uug (24.7-32.8); MEAN CORPUSCULAR HGB CONC 35 g/dL (32.3-35.6); MEAN CORPUSCULAR VOLUME 95.7 fL (75.5-95.3); MONOCYTES # (AUTO) 1.4 K/uL (0.1-1.30); MONOCYTES % (AUTO) 15.8 % (0.0-11.0); NEUTROPHILS # (AUTO) 2.9 K/uL (1.8-8.9); PLATELET COUNT (AUTO) 159 K/uL (179-408); RED BLOOD CELL COUNT(AUTO) 3.69 MIL/uL (3.63-4.92); RED CELL DISTRIBUTION WIDTH 13.8 % (12.3-17.7); WHITE BLOOD COUNT (AUTO) 8.6 K/uL (3.8-11.8)
[2023-07-30 03:44] LABS: *BILIRUBIN,URIN NEGATIVE (NEGATIVE); *BLOOD, URINE NEGATIVE (NEGATIVE); *CLARITY,URINE CLEAR (CLEAR); *COLOR,URINE YELLOW (YELLOW); *KETONES,URINE NEGATIVE (NEGATIVE); *PROTEIN,URINE NEGATIVE (NEGATIVE); LEUKOCYTE ESTERASE ,URINE NEGATIVE (NEGATIVE); NITRITE, URINE NEGATIVE (NEGATIVE); UGLUCOSE NEGATIVE (NEGATIVE)
[2023-07-30 04:44] LABS: DIFFERENTIAL COMMENT 1
[2023-07-30 04:55] LABS: *AMPHETAMINE, URINE NEGATIVE (NEGATIVE); *BARBITURATE, URINE NEGATIVE (NEGATIVE); *BENZODIAZEPINE, URINE NEGATIVE (NEGATIVE); *CANNABINOID, URINE NEGATIVE (NEGATIVE); *COCCAINE, URINE NEGATIVE (NEGATIVE); *OPIATE, URINE NEGATIVE (NEGATIVE); *PHENCYCLIDINE SCREEN,URINE NEGATIVE (NEGATIVE); FENTANYL, URINE NEGATIVE (NEGATIVE)
[2023-07-30 04:58] LABS: BACTERIA,URINE NONE SEEN /HPF (NONE SEEN); RBC,URINE 0-3 /HPF (0-3); SQUAMOUS EPITHELIAL CELL,UR FEW /HPF (NONE SEEN); WBC,URINE NONE SEEN /HPF (0-3)
[2023-07-30 05:06] LABS: CALCIUM 8.9 mg/dL (8.5-10.1); CARBON DIOXIDE 25 mmol/L (21-32); CHLORIDE 106 mmol/L (98-107); CREATININE 0.9 mg/dL (0.6-1.3); GLUCOSE 128 mg/dL (74-106); POTASSIUM 4.2 mmol/L (3.5-5.1); SODIUM SERUM 140 mmol/L (136-145); UREA NITROGEN, BLOOD 25 mg/dL (7-18)
[2023-07-30 05:19] LABS: ALANINE AMINOTRANSFERASE 14 U/L (14-59); ALBUMIN 2.7 g/dL (3.4-5.0); ALKALINE PHOSPHATASE 52 U/L (50-136); ASPARTATE AMINOTRANSFERASE < 5 U/L (15-37); BILIRUBIN,TOTAL 0.3 mg/dL (0.2-1.0)
[2023-07-30 05:20] LABS: ACETAMINOPHEN < 10.0 ug/mL (10-30)
[2023-07-30 05:37] LABS: EOSINOPHILS % (MANUAL) 1 % (0-8); LYMPHOCYTES % (MANUAL) 52 % (20-40); MONOCYTES % (MANUAL) 11 % (2-10); NEUTROPHILS % (MANUAL) 36 % (42-75); PLATELET ESTIMATE ADEQUATE
[2023-07-30 09:53] VITALS: BP 120/52; TEMP 98.1; O2SAT 97
[2023-07-30] MEDS ORDERED: BLOOD SUGAR DIAGNOSTIC 1 EACH STRIP VI ONE (10:30)
[2023-07-30] MEDS ORDERED: MAGNESIUM HYDROXIDE 30 ML LIQUID UDC PO PRN (10:30)
[2023-07-30] MEDS ORDERED: MAG HYDROX/AL HYDROX/SIMETH 30 ML LIQUID UDC PO PRN (10:30)
[2023-07-30] MEDS: DIVALPROEX 500 MG TABLET.DR PO SCH ×3 (11:00→17:42)
[2023-07-30] MEDS: OLANZAPINE 5 MG TABLET PO SCH ×3 (11:00→17:42)
[2023-07-30] MEDS: LORAZEPAM 0.5 MG TABLET PO PRN ×2 (14:10→20:00)
[2023-07-30 16:01] VITALS: BP 111/57; TEMP 98; O2SAT 97
[2023-07-30 20:00] VITALS: BP 126/60; TEMP 97.9; O2SAT 94
[2023-07-30] MEDS: ZOLPIDEM 5 MG TABLET PO PRN (21:12)
[2023-07-30] MEDS: ACETAMINOPHEN 325 MG TABLET PO PRN (21:12)
[2023-07-30] MEDS ORDERED: BISACODYL 10 MG SUPP.RECT RC PRN (21:30)
[2023-07-31] MEDS: PANTOPRAZOLE SODIUM 40 MG TABLET.DR PO SCH (06:40)
[2023-07-31 07:49] VITALS: BP 139/53; TEMP 98.1; O2SAT 97
[2023-07-31] MEDS: DIVALPROEX 500 MG TABLET.DR PO SCH ×2 (08:35→17:01)
[2023-07-31] MEDS: MAGNESIUM OXIDE 400 MG TABLET PO SCH (08:35)
[2023-07-31] MEDS: OLANZAPINE 5 MG TABLET PO SCH ×2 (08:35→17:01)
[2023-07-31] MEDS: LORAZEPAM 0.5 MG TABLET PO PRN ×3 (09:59→23:34)
[2023-07-31 16:06] VITALS: BP 150/51; TEMP 98; O2SAT 97
[2023-07-31 20:00] VITALS: BP 177/55; TEMP 97.9; O2SAT 98
[2023-07-31] MEDS: ATORVASTATIN 10 MG TABLET PO SCH (21:12)
[2023-07-31] MEDS: MUPIROCIN 2% OINT 22 GM TUBE NS SCH (21:12)
[2023-07-31 21:15] VITALS: BP 148/84
[2023-07-31] MEDS: ZOLPIDEM 5 MG TABLET PO PRN (22:02)
[2023-08-01] MEDS: PANTOPRAZOLE SODIUM 40 MG TABLET.DR PO SCH ×2 (06:32→07:00)
[2023-08-01 08:07] VITALS: BP 163/55; TEMP 98.3; O2SAT 97
[2023-08-01] MEDS: MAGNESIUM OXIDE 400 MG TABLET PO SCH (08:30)
[2023-08-01] MEDS: DIVALPROEX 500 MG TABLET.DR PO SCH ×2 (08:30→17:11)
[2023-08-01] MEDS: OLANZAPINE 5 MG TABLET PO SCH ×2 (08:30→17:11)
[2023-08-01] MEDS: MUPIROCIN 2% OINT 22 GM TUBE NS SCH ×2 (08:31→20:27)
[2023-08-01] MEDS ORDERED: LORAZEPAM 0.5 MG TABLET PO PRN (08:45)
[2023-08-01] MEDS: busPIRone 5 MG TABLET PO SCH ×3 (09:21→17:11)
[2023-08-01] MEDS: LORAZEPAM 1 MG TABLET PO PRN ×2 (09:21→21:36)
[2023-08-01 16:26] VITALS: BP 154/54; TEMP 98; O2SAT 97
[2023-08-01 19:39] VITALS: BP 156/56; TEMP 98.1; O2SAT 95
[2023-08-01] MEDS: ATORVASTATIN 10 MG TABLET PO SCH (20:27)
[2023-08-01] MEDS: ZOLPIDEM 5 MG TABLET PO PRN (20:28)
[2023-08-02] MEDS: PANTOPRAZOLE SODIUM 40 MG TABLET.DR PO SCH (06:41)
[2023-08-02 07:50] VITALS: BP 136/78; TEMP 97.9; O2SAT 96
[2023-08-02] MEDS: LORAZEPAM 1 MG TABLET PO PRN (08:02)
[2023-08-02 08:39] LABS: BILIRUBIN,TOTAL 0.6 mg/dL (0.2-1.0); CALCIUM 9.2 mg/dL (8.5-10.1); POTASSIUM 4.2 mmol/L (3.5-5.1); TOTAL PROTEIN, SERUM 6.7 g/dL (6.4-8.2)
[2023-08-02] MEDS: MAGNESIUM OXIDE 400 MG TABLET PO SCH (08:52)
[2023-08-02] MEDS: DIVALPROEX 500 MG TABLET.DR PO SCH ×2 (08:52→17:03)
[2023-08-02] MEDS: busPIRone 5 MG TABLET PO SCH ×3 (08:52→17:03)
[2023-08-02] MEDS: OLANZAPINE 5 MG TABLET PO SCH ×2 (08:52→17:03)
[2023-08-02] MEDS: MUPIROCIN 2% OINT 22 GM TUBE NS SCH ×2 (08:52→21:01)
[2023-08-02 09:09] LABS: THYROID STIMULATING HORMONE 4.423 mIU/mL (0.358-3.740)
[2023-08-02] MEDS: CLONAZEPAM 0.5 MG TABLET PO SCH ×4 (09:27→21:01)
[2023-08-02] MEDS: AMLODIPINE 10 MG TABLET PO SCH (10:11)
[2023-08-02 15:32] VITALS: BP 110/50; TEMP 97.8; O2SAT 90
[2023-08-02 20:12] VITALS: BP 118/61; TEMP 97.9; O2SAT 94
[2023-08-02] MEDS: ATORVASTATIN 10 MG TABLET PO SCH (21:01)
[2023-08-03] MEDS: PANTOPRAZOLE SODIUM 40 MG TABLET.DR PO SCH (06:40)
[2023-08-03 07:51] VITALS: BP 132/74; TEMP 98; O2SAT 96
[2023-08-03] MEDS: OLANZAPINE 5 MG TABLET PO SCH ×3 (08:38→16:55)
[2023-08-03] MEDS: CLONAZEPAM 0.5 MG TABLET PO SCH ×4 (08:38→20:28)
[2023-08-03] MEDS: AMLODIPINE 10 MG TABLET PO SCH (08:39)
[2023-08-03] MEDS: busPIRone 5 MG TABLET PO SCH ×3 (08:39→16:55)
[2023-08-03] MEDS: MAGNESIUM OXIDE 400 MG TABLET PO SCH (08:39)
[2023-08-03] MEDS: MUPIROCIN 2% OINT 22 GM TUBE NS SCH ×2 (08:40→21:00)
[2023-08-03] MEDS: DIVALPROEX SPRINKLE 125 MG CAP.SPRINK PO SCH ×2 (09:18→20:29)
[2023-08-03 15:38] VITALS: BP 122/44; TEMP 97.8; O2SAT 97
[2023-08-03 20:13] VITALS: BP 130/51; TEMP 97.9; O2SAT 96
[2023-08-03] MEDS: ATORVASTATIN 10 MG TABLET PO SCH (20:28)
[2023-08-03] MEDS: ZOLPIDEM 5 MG TABLET PO PRN (22:52)
[2023-08-04] MEDS: PANTOPRAZOLE SODIUM 40 MG TABLET.DR PO SCH (07:00)
[2023-08-04 07:50] VITALS: BP 90/57; TEMP 98; O2SAT 98
[2023-08-04] MEDS: AMLODIPINE 10 MG TABLET PO SCH (09:00)
[2023-08-04] MEDS: MAGNESIUM OXIDE 400 MG TABLET PO SCH (09:33)
[2023-08-04] MEDS: CLONAZEPAM 0.5 MG TABLET PO SCH ×4 (09:33→20:35)
[2023-08-04] MEDS: OLANZAPINE 5 MG TABLET PO SCH ×2 (09:33→16:48)
[2023-08-04] MEDS: busPIRone 5 MG TABLET PO SCH ×3 (09:34→16:48)
[2023-08-04] MEDS: DIVALPROEX SPRINKLE 125 MG CAP.SPRINK PO SCH ×2 (09:34→20:33)
[2023-08-04] MEDS: MUPIROCIN 2% OINT 22 GM TUBE NS SCH ×2 (09:35→20:33)
[2023-08-04 15:33] VITALS: BP 149/54; TEMP 98; O2SAT 98
[2023-08-04] MEDS: GLUCERNA SHAKE 237 ML CAN PO SCH (16:48)
[2023-08-04 20:00] VITALS: BP 156/36; TEMP 98.1; O2SAT 98
[2023-08-04] MEDS: ATORVASTATIN 10 MG TABLET PO SCH (20:33)
[2023-08-04] MEDS: MELATONIN 3 MG TABLET PO SCH (20:36)
[2023-08-05] MEDS: ZOLPIDEM 5 MG TABLET PO PRN (00:19)
[2023-08-05] MEDS: HYDROXYZINE PAMOATE 25 MG CAPSULE PO PRN (06:02)
[2023-08-05] MEDS: PANTOPRAZOLE SODIUM 40 MG TABLET.DR PO SCH (06:02)
[2023-08-05 07:30] VITALS: BP 166/58; TEMP 98; O2SAT 98
[2023-08-05] MEDS: GLUCERNA SHAKE 237 ML CAN PO SCH ×2 (08:36→17:39)
[2023-08-05] MEDS: OLANZAPINE 5 MG TABLET PO SCH ×2 (08:36→16:26)
[2023-08-05] MEDS: DIVALPROEX SPRINKLE 125 MG CAP.SPRINK PO SCH ×2 (08:36→20:55)
[2023-08-05] MEDS: MAGNESIUM OXIDE 400 MG TABLET PO SCH (08:37)
[2023-08-05] MEDS: busPIRone 5 MG TABLET PO SCH ×3 (08:37→16:25)
[2023-08-05] MEDS: CLONAZEPAM 0.5 MG TABLET PO SCH ×4 (08:37→20:57)
[2023-08-05] MEDS: AMLODIPINE 10 MG TABLET PO SCH (08:41)
[2023-08-05] MEDS: MUPIROCIN 2% OINT 22 GM TUBE NS SCH ×2 (08:43→20:55)
[2023-08-05 15:25] VITALS: BP 122/61; TEMP 98; O2SAT 96
[2023-08-05 20:00] VITALS: BP 143/80; TEMP 98; O2SAT 93
[2023-08-05] MEDS: ATORVASTATIN 10 MG TABLET PO SCH (20:55)
[2023-08-05] MEDS: MELATONIN 3 MG TABLET PO SCH (20:57)
[2023-08-05] MEDS: ACETAMINOPHEN 325 MG TABLET PO PRN (20:57)
[2023-08-05] MEDS: REMEDY ESSENTIAL ZINC PASTE 113 GM TOP PRN (21:00)
[2023-08-06] MEDS: ACETAMINOPHEN 325 MG TABLET PO PRN (04:03)
[2023-08-06] MEDS: HYDROXYZINE PAMOATE 25 MG CAPSULE PO PRN (04:03)
[2023-08-06] MEDS: PANTOPRAZOLE SODIUM 40 MG TABLET.DR PO SCH (06:12)
[2023-08-06 08:17] VITALS: BP 135/51; TEMP 97.9; O2SAT 96
[2023-08-06] MEDS: DIVALPROEX SPRINKLE 125 MG CAP.SPRINK PO SCH ×2 (08:30→20:38)
[2023-08-06] MEDS: AMLODIPINE 10 MG TABLET PO SCH (08:31)
[2023-08-06] MEDS: OLANZAPINE 5 MG TABLET PO SCH ×2 (08:31→17:09)
[2023-08-06] MEDS: MAGNESIUM OXIDE 400 MG TABLET PO SCH (08:32)
[2023-08-06] MEDS: CLONAZEPAM 0.5 MG TABLET PO SCH ×4 (08:32→20:36)
[2023-08-06] MEDS: busPIRone 5 MG TABLET PO SCH ×3 (08:39→17:09)
[2023-08-06] MEDS: GLUCERNA SHAKE 237 ML CAN PO SCH ×2 (08:40→17:09)
[2023-08-06] MEDS: MUPIROCIN 2% OINT 22 GM TUBE NS SCH ×2 (08:40→21:00)
[2023-08-06] MEDS: CLOTRIMAZOLE 1% CREAM 30 GM TUBE TOP SCH ×2 (13:17→20:58)
[2023-08-06 17:31] VITALS: BP 178/53; TEMP 99; O2SAT 96
[2023-08-06 17:59] VITALS: BP 117/48; TEMP 98; O2SAT 98
[2023-08-06 20:00] VITALS: BP 140/60; TEMP 98; O2SAT 98
[2023-08-06] MEDS: ATORVASTATIN 10 MG TABLET PO SCH (20:36)
[2023-08-06] MEDS: MELATONIN 3 MG TABLET PO SCH (20:36)
[2023-08-07] MEDS: ZOLPIDEM 5 MG TABLET PO PRN (01:23)
[2023-08-07] MEDS: HYDROXYZINE PAMOATE 25 MG CAPSULE PO PRN (03:42)
[2023-08-07] MEDS: PANTOPRAZOLE SODIUM 40 MG TABLET.DR PO SCH (07:00)
[2023-08-07 07:54] VITALS: BP 139/92; TEMP 98; O2SAT 98
[2023-08-07] MEDS: CLONAZEPAM 0.5 MG TABLET PO SCH ×4 (08:18→20:37)
[2023-08-07] MEDS: DIVALPROEX SPRINKLE 125 MG CAP.SPRINK PO SCH ×2 (08:18→20:36)
[2023-08-07] MEDS: MAGNESIUM OXIDE 400 MG TABLET PO SCH (08:18)
[2023-08-07] MEDS: AMLODIPINE 10 MG TABLET PO SCH (08:19)
[2023-08-07] MEDS: busPIRone 5 MG TABLET PO SCH ×3 (08:19→17:00)
[2023-08-07] MEDS: OLANZAPINE 5 MG TABLET PO SCH ×2 (08:20→17:00)
[2023-08-07] MEDS: CLOTRIMAZOLE 1% CREAM 30 GM TUBE TOP SCH ×2 (08:21→20:47)
[2023-08-07] MEDS: MUPIROCIN 2% OINT 22 GM TUBE NS SCH ×2 (08:22→21:01)
[2023-08-07] MEDS: GLUCERNA SHAKE 237 ML CAN PO SCH ×2 (08:23→17:00)
[2023-08-07 15:26] VITALS: BP 123/50; TEMP 98; O2SAT 99
[2023-08-07 20:00] VITALS: BP 141/55; TEMP 97.6; O2SAT 96
[2023-08-07] MEDS: MELATONIN 3 MG TABLET PO SCH (20:37)
[2023-08-07] MEDS: ATORVASTATIN 10 MG TABLET PO SCH (20:37)
[2023-08-08] MEDS: PANTOPRAZOLE SODIUM 40 MG TABLET.DR PO SCH (06:52)
[2023-08-08] MEDS: HYDROXYZINE PAMOATE 25 MG CAPSULE PO PRN (06:52)
[2023-08-08 07:49] VITALS: BP 151/60; TEMP 97.9; O2SAT 95
[2023-08-08] MEDS: GLUCERNA SHAKE 237 ML CAN PO SCH (08:00)
[2023-08-08] MEDS: CLONAZEPAM 0.5 MG TABLET PO SCH ×2 (08:40→20:47)
[2023-08-08] MEDS: busPIRone 5 MG TABLET PO SCH ×3 (08:40→16:59)
[2023-08-08] MEDS: MAGNESIUM OXIDE 400 MG TABLET PO SCH (08:40)
[2023-08-08] MEDS: AMLODIPINE 10 MG TABLET PO SCH (08:41)
[2023-08-08] MEDS: OLANZAPINE 5 MG TABLET PO SCH ×2 (08:41→16:59)
[2023-08-08] MEDS: DIVALPROEX SPRINKLE 125 MG CAP.SPRINK PO SCH ×3 (08:41→23:30)
[2023-08-08] MEDS: CLOTRIMAZOLE 1% CREAM 30 GM TUBE TOP SCH ×2 (08:46→20:48)
[2023-08-08] MEDS: MUPIROCIN 2% OINT 22 GM TUBE NS SCH ×2 (08:46→20:48)
[2023-08-08 09:42] LABS: BASOPHILS # (AUTO) 0.1 K/UL (0.0-0.2); BASOPHILS % (AUTO) 0.9 % (0.0-2.0); EOSINOPHILS # (AUTO) 0.3 K/uL (0.0-0.7); EOSINOPHILS % (AUTO) 3.5 % (0.0-7.0); HEMATOCRIT 34.6 % (31.2-41.9); HEMOGLOBIN 11.5 g/dL (10.9-14.3); LYMPHOCYTES # (AUTO) 3.8 K/uL (0.8-4.8); LYMPHOCYTES % (AUTO) 46.5 % (20.5-51.5); MEAN CORPUSCULAR HEMOGLOBIN 32.5 uug (24.7-32.8); MEAN CORPUSCULAR HGB CONC 33 g/dL (32.3-35.6); MEAN CORPUSCULAR VOLUME 97.9 fL (75.5-95.3); MONOCYTES # (AUTO) 0.8 K/uL (0.1-1.30); NEUTROPHILS # (AUTO) 3.2 K/uL (1.8-8.9); NEUTROPHILS % (AUTO) 39.1 % (38.5-71.5); PLATELET COUNT (AUTO) 240 K/uL (179-408); RED BLOOD CELL COUNT(AUTO) 3.53 MIL/uL (3.63-4.92); RED CELL DISTRIBUTION WIDTH 13.5 % (12.3-17.7); WHITE BLOOD COUNT (AUTO) 8.1 K/uL (3.8-11.8)
[2023-08-08 10:01] LABS: ALANINE AMINOTRANSFERASE 13 U/L (14-59); ALBUMIN 2.5 g/dL (3.4-5.0); ALKALINE PHOSPHATASE 60 U/L (50-136); ASPARTATE AMINOTRANSFERASE 12 U/L (15-37); BILIRUBIN,TOTAL 0.2 mg/dL (0.2-1.0); CALCIUM 8.8 mg/dL (8.5-10.1); CARBON DIOXIDE 25 mmol/L (21-32); CHLORIDE 109 mmol/L (98-107); GLUCOSE 106 mg/dL (74-106); POTASSIUM 4.1 mmol/L (3.5-5.1); SODIUM SERUM 143 mmol/L (136-145); TOTAL PROTEIN, SERUM 5.9 g/dL (6.4-8.2); UREA NITROGEN, BLOOD 50 mg/dL (7-18)
[2023-08-08] MEDS: ENSURE ENLIVE (VAN) 240 ML LIQUID PO SCH (17:01)
[2023-08-08 17:49] VITALS: BP 148/64; TEMP 98; O2SAT 96
[2023-08-08 19:54] VITALS: BP 95/60; TEMP 98.5; O2SAT 96
[2023-08-08] MEDS: MELATONIN 3 MG TABLET PO SCH ×2 (20:47→23:28)
[2023-08-08] MEDS: ATORVASTATIN 10 MG TABLET PO SCH (20:47)
[2023-08-09] MEDS: PANTOPRAZOLE SODIUM 40 MG TABLET.DR PO SCH (06:39)
[2023-08-09] MEDS: DIVALPROEX SPRINKLE 125 MG CAP.SPRINK PO SCH ×2 (08:51→21:00)
[2023-08-09] MEDS: busPIRone 5 MG TABLET PO SCH ×3 (08:51→17:43)
[2023-08-09] MEDS: MAGNESIUM OXIDE 400 MG TABLET PO SCH (08:52)
[2023-08-09] MEDS: CLOTRIMAZOLE 1% CREAM 30 GM TUBE TOP SCH ×2 (09:00→21:00)
[2023-08-09] MEDS: ENSURE ENLIVE (VAN) 240 ML LIQUID PO SCH ×3 (09:00→17:43)
[2023-08-09] MEDS: AMLODIPINE 10 MG TABLET PO SCH (09:00)
[2023-08-09 09:26] VITALS: BP 92/33; TEMP 97.9; O2SAT 96
[2023-08-09] MEDS: OLANZAPINE 5 MG TABLET PO SCH ×2 (09:32→20:59)
[2023-08-09 16:30] VITALS: BP 124/52; TEMP 97.3; O2SAT 96
[2023-08-09 20:00] VITALS: BP 140/47; TEMP 97.5; O2SAT 98
[2023-08-09] MEDS: MELATONIN 3 MG TABLET PO SCH (20:58)
[2023-08-09] MEDS: ATORVASTATIN 10 MG TABLET PO SCH (20:59)
[2023-08-09] MEDS: REMEDY ESSENTIAL ZINC PASTE 113 GM TOP PRN (21:01)
[2023-08-10] MEDS: PANTOPRAZOLE SODIUM 40 MG TABLET.DR PO SCH (06:33)
[2023-08-10 08:00] VITALS: BP 104/51; TEMP 97.2; O2SAT 97
[2023-08-10] MEDS: MAGNESIUM OXIDE 400 MG TABLET PO SCH (08:40)
[2023-08-10] MEDS: busPIRone 5 MG TABLET PO SCH ×3 (08:40→17:00)
[2023-08-10] MEDS: OLANZAPINE 5 MG TABLET PO SCH ×2 (08:40→20:40)
[2023-08-10] MEDS: AMLODIPINE 10 MG TABLET PO SCH (08:40)
[2023-08-10] MEDS: DIVALPROEX SPRINKLE 125 MG CAP.SPRINK PO SCH ×2 (08:40→20:40)
[2023-08-10] MEDS: CLOTRIMAZOLE 1% CREAM 30 GM TUBE TOP SCH ×2 (08:41→20:42)
[2023-08-10] MEDS: ENSURE ENLIVE (VAN) 240 ML LIQUID PO SCH ×3 (08:41→17:00)
[2023-08-10 16:00] VITALS: BP 130/65; TEMP 97.2; O2SAT 97
[2023-08-10 20:10] VITALS: BP 118/56; TEMP 97.9; O2SAT 95
[2023-08-10] MEDS: ATORVASTATIN 10 MG TABLET PO SCH (20:40)
[2023-08-10] MEDS: MELATONIN 3 MG TABLET PO SCH (20:40)
[2023-08-11 08:04] VITALS: BP 141/52; TEMP 98.2; O2SAT 100
[2023-08-11] MEDS: AMLODIPINE 10 MG TABLET PO SCH (08:52)
[2023-08-11] MEDS: OLANZAPINE 5 MG TABLET PO SCH ×2 (08:52→20:12)
[2023-08-11] MEDS: busPIRone 5 MG TABLET PO SCH ×3 (08:52→17:07)
[2023-08-11] MEDS: DIVALPROEX SPRINKLE 125 MG CAP.SPRINK PO SCH ×2 (08:52→20:12)
[2023-08-11] MEDS: MAGNESIUM OXIDE 400 MG TABLET PO SCH (08:52)
[2023-08-11] MEDS: ENSURE ENLIVE (VAN) 240 ML LIQUID PO SCH ×3 (08:53→17:08)
[2023-08-11] MEDS: PANTOPRAZOLE SODIUM 40 MG TABLET.DR PO SCH (08:54)
[2023-08-11] MEDS: CLOTRIMAZOLE 1% CREAM 30 GM TUBE TOP SCH ×2 (09:07→20:12)
[2023-08-11 15:13] VITALS: BP 138/61; TEMP 98.2; O2SAT 100
[2023-08-11 19:57] VITALS: BP 146/56; TEMP 98.3; O2SAT 99
[2023-08-11] MEDS: ATORVASTATIN 10 MG TABLET PO SCH (20:12)
[2023-08-11] MEDS ORDERED: MELATONIN 3 MG TABLET PO SCH (21:00)
[2023-08-12] MEDS: HYDROXYZINE PAMOATE 25 MG CAPSULE PO PRN (03:29)
[2023-08-12] MEDS: REMEDY ESSENTIAL ZINC PASTE 113 GM TOP PRN (03:29)
[2023-08-12] MEDS: PANTOPRAZOLE SODIUM 40 MG TABLET.DR PO SCH (06:01)
[2023-08-12 07:53] VITALS: BP 142/54; TEMP 98; O2SAT 96
[2023-08-12] MEDS: OLANZAPINE 5 MG TABLET PO SCH (08:45)
[2023-08-12] MEDS: DIVALPROEX SPRINKLE 125 MG CAP.SPRINK PO SCH (08:45)
[2023-08-12] MEDS: MAGNESIUM OXIDE 400 MG TABLET PO SCH (08:45)
[2023-08-12] MEDS: busPIRone 5 MG TABLET PO SCH (08:46)
[2023-08-12 08:47] VITALS: BP 142/54
[2023-08-12] MEDS: ENSURE ENLIVE (VAN) 240 ML LIQUID PO SCH (08:47)
[2023-08-12] MEDS: AMLODIPINE 10 MG TABLET PO SCH (08:47)
[2023-08-12] MEDS: CLOTRIMAZOLE 1% CREAM 30 GM TUBE TOP SCH (08:48)
== END 2023-08-12 11:00 | DRG 885 ==
LOC: ER 01:38 → GPS 09:06
PROVIDERS: ADMIT Psychiatry & Neurology Psychiatry; ATTEND Internal Medicine
DX: F25.0 Schizoaffective disorder, bipolar type (principal); F01.54 Vascular dementia, unspecified severity, with anxiety; J44.89 Other specified chronic obstructive pulmonary disease; F01.511 Vascular dementia, unspecified severity, with agitation; G40.909 Epilepsy, unspecified, not intractable, without status epilepticus; E11.9 Type 2 diabetes mellitus without complications; K21.9 Gastro-esophageal reflux disease without esophagitis; R26.81 Unsteadiness on feet; Z91.81 History of falling; E78.5 Hyperlipidemia, unspecified; I10 Essential (primary) hypertension; Z79.899 Other long term (current) drug therapy; Z95.0 Presence of cardiac pacemaker; Z66 Do not resuscitate
CPT/HCPCS: 36415; 70030-TC; 80164; 84443; 85025; A6209; C1758

== ENCOUNTER 2024-12-31 19:45 | Inpatient (IN) | payer MEDICARE, OTHER ==
[~2024-12-31] VITALS: Ht 157.5 cm; Wt 64.0 kg
[2024-12-31 00:15] VITALS: BP 145/47; TEMP 97.6; O2SAT 98
[~2024-12-31 19:45] MED LIST changes: -ASCO500C6 PO; -BENZ0.5T43 PO; -CALC500T13 PO; -CLON0.1T PO; -CRAN250C PO; -DEXT37.54 PO; -DIPH25CA83 PO; -FOLI1TAB27 PO; -GABA-532 PO; -IBUP-1953 PO; +MAGN400O6 PO; -MELA3CAP2 PO; -METO-357 PO; +METO50TA16 PO; -MULT-213 PO
[2024-12-31] MEDS ORDERED: LACT10SO58 PO (19:57)
[2024-12-31] MEDS ORDERED: DIVA250T4 PO (19:57)
[2024-12-31] MEDS ORDERED: [UNRECOGNIZED DRUG - CODE] PO (19:57)
[2024-12-31] MEDS ORDERED: MEMA10TA PO (19:57)
[2024-12-31] MEDS ORDERED: SERT25TA PO (19:57)
[2024-12-31] MEDS ORDERED: POLY15DR31 EACHEYE (19:57)
[2024-12-31] MEDS ORDERED: NEO/5DRO7 EACHEYE (19:57)
[2024-12-31] MEDS ORDERED: HALOPERIDOL LACTATE 5 MG/1 ML VIAL ONE (20:12)
[2024-12-31 20:15] LABS: BASOPHILS # (AUTO) 0.1 K/UL (0.0-0.2); BASOPHILS % (AUTO) 0.8 % (0.0-2.0); EOSINOPHILS # (AUTO) 0.2 K/uL (0.0-0.7); EOSINOPHILS % (AUTO) 2.5 % (0.0-7.0); HEMATOCRIT 37.5 % (31.2-41.9); HEMOGLOBIN 12.8 g/dL (10.9-14.3); LYMPHOCYTES # (AUTO) 4.3 K/uL (0.8-4.8); LYMPHOCYTES % (AUTO) 52.3 % (20.5-51.5); MEAN CORPUSCULAR HEMOGLOBIN 32.2 uug (24.7-32.8); MEAN CORPUSCULAR HGB CONC 34 g/dL (32.3-35.6); MEAN CORPUSCULAR VOLUME 94.5 fL (75.5-95.3); MONOCYTES # (AUTO) 0.7 K/uL (0.1-1.30); MONOCYTES % (AUTO) 9.1 % (0.0-11.0); NEUTROPHILS # (AUTO) 2.9 K/uL (1.8-8.9); NEUTROPHILS % (AUTO) 35.3 % (38.5-71.5); PLATELET COUNT (AUTO) 136 K/uL (179-408); RED BLOOD CELL COUNT(AUTO) 3.97 MIL/uL (3.63-4.92); RED CELL DISTRIBUTION WIDTH 12.8 % (12.3-17.7); WHITE BLOOD COUNT (AUTO) 8.2 K/uL (3.8-11.8)
[2024-12-31 20:16] LABS: DIFFERENTIAL COMMENT 1
[2024-12-31] MEDS: HALOPERIDOL LACTATE 5 MG/1 ML VIAL IM ONE (20:16)
[2024-12-31 20:24] LABS: CARBON DIOXIDE 26 mmol/L (21-32); CHLORIDE 114 mmol/L (98-107); CREATININE 0.8 mg/dL (0.6-1.3); GLUCOSE 101 mg/dL (74-106); SODIUM SERUM 150 mmol/L (136-145); UREA NITROGEN, BLOOD 31 mg/dL (7-18)
[2024-12-31 20:30] LABS: ALANINE AMINOTRANSFERASE 17 U/L (14-59); ALBUMIN 3.1 g/dL (3.4-5.0); ALKALINE PHOSPHATASE 57 U/L (50-136); ASPARTATE AMINOTRANSFERASE 10 U/L (15-37); BILIRUBIN,DIRECT 0.1 mg/dL (0.0-0.2); BILIRUBIN,TOTAL 0.2 mg/dL (0.2-1.0); TOTAL PROTEIN, SERUM 6.7 g/dL (6.4-8.2)
[2024-12-31 20:32] LABS: ACETAMINOPHEN < 2.0 ug/mL (10-30)
[2024-12-31 20:38] LABS: ETHANOL < 3 MG/DL (0-10)
[2024-12-31] MEDS ORDERED: MAGNESIUM HYDROXIDE 30 ML LIQUID UDC PO PRN (21:00)
[2024-12-31] MEDS ORDERED: FLEET ENEMA 133 ML BOTTLE RC PRN (21:00)
[2024-12-31] MEDS ORDERED: BISACODYL 10 MG SUPP.RECT RC PRN (21:00)
[2024-12-31] MEDS ORDERED: Medication Not On Formulary EA (Acetaminophen (Tylenol) 650 MG) PO SCH (21:00)
[2024-12-31] MEDS ORDERED: ACETAMINOPHEN 325 MG TABLET PO PRN (21:15)
[2024-12-31] MEDS ORDERED: LORAZEPAM 2 MG/1 ML VIAL ONE (21:41)
[2024-12-31] MEDS: LORAZEPAM 2 MG/1 ML VIAL IM ONE (21:50)
[2024-12-31] MEDS: IV 1/2NS 1000 ML 1,000 ML IV ONE (21:50)
[2024-12-31] MEDS: ATORVASTATIN 10 MG TABLET PO SCH (23:44)
[2024-12-31] MEDS: DIVALPROEX 250 MG TABLET.DR PO SCH (23:44)
[2025-01-01] VITALS (7 sets, daily range): BP systolic 103–167; BP diastolic 44–68; TEMP 97.4–97.7; O2SAT 97–99
[2025-01-01] MEDS: OLANZAPINE 10 MG VIAL IM PRN (00:15)
[2025-01-01] MEDS: IV 1/2NS 1000 ML 1,000 ML IV PRN (05:20)
[2025-01-01 06:52] LABS: BASOPHILS % (AUTO) 0.6 % (0.0-2.0); EOSINOPHILS # (AUTO) 0.2 K/uL (0.0-0.7); EOSINOPHILS % (AUTO) 2.7 % (0.0-7.0); HEMATOCRIT 36.2 % (31.2-41.9); HEMOGLOBIN 12.7 g/dL (10.9-14.3); LYMPHOCYTES # (AUTO) 4.8 K/uL (0.8-4.8); LYMPHOCYTES % (AUTO) 57.6 % (20.5-51.5); MEAN CORPUSCULAR HEMOGLOBIN 33.1 uug (24.7-32.8); MEAN CORPUSCULAR HGB CONC 35 g/dL (32.3-35.6); MEAN CORPUSCULAR VOLUME 94.3 fL (75.5-95.3); MONOCYTES # (AUTO) 0.7 K/uL (0.1-1.30); MONOCYTES % (AUTO) 8.5 % (0.0-11.0); NEUTROPHILS # (AUTO) 2.6 K/uL (1.8-8.9); NEUTROPHILS % (AUTO) 30.6 % (38.5-71.5); PLATELET COUNT (AUTO) 130 K/uL (179-408); RED BLOOD CELL COUNT(AUTO) 3.84 MIL/uL (3.63-4.92); RED CELL DISTRIBUTION WIDTH 12.7 % (12.3-17.7); WHITE BLOOD COUNT (AUTO) 8.3 K/uL (3.8-11.8)
[2025-01-01 06:58] LABS: DIFFERENTIAL COMMENT 1
[2025-01-01 07:14] LABS: ALANINE AMINOTRANSFERASE 18 U/L (14-59); ALBUMIN 3.2 g/dL (3.4-5.0); ALKALINE PHOSPHATASE 59 U/L (50-136); ASPARTATE AMINOTRANSFERASE 14 U/L (15-37); BILIRUBIN,TOTAL 0.2 mg/dL (0.2-1.0); CALCIUM 8.5 mg/dL (8.5-10.1); CARBON DIOXIDE 30 mmol/L (21-32); CHLORIDE 110 mmol/L (98-107); CREATININE 0.7 mg/dL (0.6-1.3); GLUCOSE 96 mg/dL (74-106); MAGNESIUM 2.1 mg/dL (1.8-2.4); PHOSPHOROUS 3.7 mg/dL (2.5-4.9); POTASSIUM 4.1 mmol/L (3.5-5.1); SODIUM SERUM 147 mmol/L (136-145); TOTAL PROTEIN, SERUM 6.9 g/dL (6.4-8.2); UREA NITROGEN, BLOOD 23 mg/dL (7-18); VALPROIC ACID 56 ug/mL (50-100)
[2025-01-01 07:43] LABS: CHOLESTEROL 130 mg/dL (<200); HDL CHOLESTEROL 66 mg/dL (40-60); TRIGLYCERIDES 131 MG/DL (30-150)
[2025-01-01 08:44] LABS: THYROID STIMULATING HORMONE 5.531 mIU/mL (0.358-3.740)
[2025-01-01] MEDS ORDERED: ZOLPIDEM 5 MG TABLET PO PRN (09:15)
[2025-01-01] MEDS: MEMANTINE HCL 10 MG TABLET PO SCH (09:28)
[2025-01-01] MEDS: OLANZAPINE 5 MG TABLET PO SCH (09:28)
[2025-01-01] MEDS: SERTRALINE HCL 50 MG TABLET PO SCH (09:28)
[2025-01-01] MEDS: PANTOPRAZOLE SODIUM 40 MG TABLET.DR PO SCH (09:31)
[2025-01-01] MEDS: AMLODIPINE 10 MG TABLET PO SCH (09:31)
[2025-01-01] MEDS: LACTULOSE 20 G/30 ML LIQUID UDC PO SCH (09:31)
[2025-01-01] MEDS: POLYVINYL ALCOHOL OPHT DROPS 15 ML BOTTLE EACHEYE SCH (12:21)
[2025-01-01] MEDS: CLOTRIMAZOLE/BETAMET DIPROP CREAM 15 GM TUBE TOP SCH (20:57)
[2025-01-01] MEDS: REMEDY ESSENTIAL ZINC PASTE 113 GM TOP SCH (20:57)
[2025-01-01] MEDS: DOCUSATE SODIUM 100 MG CAPSULE PO SCH (20:57)
[2025-01-02 05:00] VITALS: BP 148/43; TEMP 97.4; O2SAT 97
[2025-01-02 07:15] VITALS: BP 148/68; TEMP 98; O2SAT 98
[2025-01-02] MEDS: LORAZEPAM 1 MG TABLET PO PRN (07:59)
[2025-01-02 09:00] LABS: CALCIUM 8.5 mg/dL (8.5-10.1); CARBON DIOXIDE 27 mmol/L (21-32); CHLORIDE 110 mmol/L (98-107); CREATININE 0.9 mg/dL (0.6-1.3); GLUCOSE 130 mg/dL (74-106); POTASSIUM 4.4 mmol/L (3.5-5.1); SODIUM SERUM 142 mmol/L (136-145); UREA NITROGEN, BLOOD 26 mg/dL (7-18)
[2025-01-02 15:38] VITALS: BP 150/72; TEMP 98.2; O2SAT 96
[2025-01-03] MEDS ORDERED: DOCU240C26 PO (11:17)
[2025-01-03] MEDS ORDERED: CLOT15CR5 TP (11:17)
[2025-01-03] MEDS ORDERED: DOCU100T2 PO (11:18)
[2025-01-03] MEDS ORDERED: LORA-259 PO (11:19)
[2025-01-03] MEDS ORDERED: OLAN10VI2 IM (11:20)
[2025-01-03] MEDS ORDERED: PETR113P TP (11:22)
[2025-01-03] MEDS ORDERED: ZOLP5TAB8 PO (11:23)
== END 2025-01-02 18:26 | DRG 640 ==
LOC: ER 19:45 → MEDSURG3 22:23
PROVIDERS: ADMIT Internal Medicine; ATTEND Internal Medicine
DX: E87.0 Hyperosmolality and hypernatremia (principal); G93.41 Metabolic encephalopathy; N17.9 Acute kidney failure, unspecified; F02.84 Dementia in other diseases classified elsewhere, unspecified severity, with anxiety; F02.811 Dementia in other diseases classified elsewhere, unspecified severity, with agitation; E86.0 Dehydration; E03.9 Hypothyroidism, unspecified; E11.40 Type 2 diabetes mellitus with diabetic neuropathy, unspecified; G40.909 Epilepsy, unspecified, not intractable, without status epilepticus; F25.0 Schizoaffective disorder, bipolar type; J44.89 Other specified chronic obstructive pulmonary disease; Z79.899 Other long term (current) drug therapy; F60.9 Personality disorder, unspecified; E78.5 Hyperlipidemia, unspecified; G30.9 Alzheimer's disease, unspecified; I10 Essential (primary) hypertension
CPT/HCPCS: 36415; 80164; 83735; 84100; 84443; 85025; A4663; G0378; G0480; J1630; J2060; J2358; J3490

== ENCOUNTER 2025-01-02 18:39 | Inpatient (IN) | payer MEDICARE, OTHER ==
[~2025-01-02] VITALS: Ht 162.6 cm; Wt 68.0 kg
[~2025-01-02 18:39] MED LIST changes: +DIVA250T4 PO; +LACT10SO58 PO; -MAGN400C PO; +MEMA10TA PO; -METO50TA16 PO; +POLY15DR31 EACHEYE; +SERT25TA PO; +[UNRECOGNIZED DRUG - CODE] PO
[2025-01-02] MEDS ORDERED: MAG HYDROX/AL HYDROX/SIMETH 30 ML LIQUID UDC PO PRN (20:00)
[2025-01-02] MEDS ORDERED: LORAZEPAM 1 MG TABLET PO PRN (20:00)
[2025-01-02] MEDS ORDERED: MAGNESIUM HYDROXIDE 30 ML LIQUID UDC PO PRN ×2 (20:00→20:15)
[2025-01-02] MEDS: BLOOD SUGAR DIAGNOSTIC 1 EACH STRIP VI ONE (20:03)
[2025-01-02] MEDS ORDERED: Medication Not On Formulary EA (Acetaminophen (Tylenol) 650 MG) PO SCH (20:15)
[2025-01-02] MEDS ORDERED: FLEET ENEMA 133 ML BOTTLE RC PRN (20:15)
[2025-01-02] MEDS ORDERED: BISACODYL 10 MG SUPP.RECT RC PRN (20:15)
[2025-01-02] MEDS: LORAZEPAM 1 MG TABLET PO PRN (20:28)
[2025-01-02] MEDS: ATORVASTATIN 10 MG TABLET PO SCH (20:56)
[2025-01-03] MEDS: ZOLPIDEM 5 MG TABLET PO PRN ×2 (00:02→21:45)
[2025-01-03 08:03] VITALS: BP 156/65; TEMP 98; O2SAT 96
[2025-01-03] MEDS ORDERED: LACTULOSE 20 G/30 ML LIQUID UDC PO SCH (09:00)
[2025-01-03] MEDS: DIVALPROEX 250 MG TABLET.DR PO SCH (09:46)
[2025-01-03] MEDS: SERTRALINE HCL 50 MG TABLET PO SCH (09:46)
[2025-01-03] MEDS: PANTOPRAZOLE SODIUM 40 MG TABLET.DR PO SCH (09:46)
[2025-01-03] MEDS: AMLODIPINE 10 MG TABLET PO SCH (09:46)
[2025-01-03] MEDS: OLANZAPINE 2.5 MG TABLET PO SCH (09:54)
[2025-01-03] MEDS ORDERED: DOCU240C26 PO (11:17)
[2025-01-03] MEDS ORDERED: CLOT15CR5 TP (11:17)
[2025-01-03] MEDS ORDERED: DOCU100T2 PO (11:18)
[2025-01-03] MEDS ORDERED: LORA-259 PO (11:19)
[2025-01-03] MEDS ORDERED: OLAN10VI2 IM (11:20)
[2025-01-03] MEDS ORDERED: PETR113P TP (11:22)
[2025-01-03] MEDS ORDERED: ZOLP5TAB8 PO (11:23)
[2025-01-03] MEDS: LORAZEPAM 1 MG TABLET PO PRN (11:42)
[2025-01-03] MEDS: LACTULOSE 20 G/30 ML LIQUID UDC PO SCH (13:36)
[2025-01-03 15:26] VITALS: BP 160/56; TEMP 98; O2SAT 96
[2025-01-03] MEDS: ACETAMINOPHEN 325 MG TABLET PO PRN (15:33)
[2025-01-03] MEDS: POLYVINYL ALCOHOL OPHT DROPS 15 ML BOTTLE EACHEYE PRN (15:34)
[2025-01-03] MEDS: OLANZAPINE 10 MG VIAL IM ONE (16:40)
[2025-01-03] MEDS: NYSTATIN POWDER 15 GM BOTTLE TOP SCH (17:18)
[2025-01-03 20:00] VITALS: BP 144/60; TEMP 98; O2SAT 96
[2025-01-03] MEDS: DOCUSATE SODIUM 100 MG CAPSULE PO SCH (20:21)
[2025-01-04] MEDS ORDERED: REMEDY ESSENTIAL ZINC PASTE 113 GM TOP SCH (09:00)
[2025-01-04 09:10] VITALS: BP 117/57; TEMP 98.6; O2SAT 98
[2025-01-04] MEDS: POLYVINYL ALCOHOL OPHT DROPS 15 ML BOTTLE EACHEYE SCH (09:27)
[2025-01-04] MEDS: CLONAZEPAM 0.5 MG TABLET PO SCH (11:05)
[2025-01-04] MEDS: risperiDONE 2 MG TABLET PO SCH (11:06)
[2025-01-04] MEDS: SERTRALINE HCL 50 MG TABLET PO SCH (11:07)
[2025-01-04 17:00] VITALS: BP 135/54; TEMP 98.4; O2SAT 97
[2025-01-04] MEDS: HYDROXYZINE PAMOATE 25 MG CAPSULE PO PRN (18:18)
[2025-01-04] MEDS: CLOTRIMAZOLE/BETAMET DIPROP CREAM 15 GM TUBE TP SCH (18:22)
[2025-01-04 19:53] VITALS: BP 130/60; TEMP 97.7; O2SAT 96
[2025-01-04] MEDS: REMEDY ESSENTIAL ZINC PASTE 113 GM TOP SCH (20:47)
[2025-01-05 08:10] VITALS: BP_SYST 106; BP_SYST 134; BP_DIAS 50; BP_DIAS 65; TEMP 98; O2SAT 98
[2025-01-05 15:27] VITALS: BP 130/68; TEMP 97.8; O2SAT 98
[2025-01-05 19:40] VITALS: BP 132/69; TEMP 98.6; O2SAT 97
[2025-01-06 08:21] VITALS: BP 124/69; TEMP 98.2; O2SAT 98
[2025-01-06 15:08] VITALS: BP 126/59; TEMP 98; O2SAT 96
[2025-01-06 20:03] VITALS: BP 132/68; TEMP 98.2; O2SAT 97
[2025-01-06] MEDS: OLANZAPINE 10 MG VIAL IM ONE (22:28)
[2025-01-07 08:13] VITALS: TEMP 98.3
[2025-01-07] MEDS: DIVALPROEX 500 MG TABLET.DR PO SCH (08:33)
[2025-01-07] MEDS: risperiDONE 2 MG TABLET PO SCH (08:33)
[2025-01-07] MEDS ORDERED: DIVALPROEX 250 MG TABLET.DR PO SCH (09:00)
[2025-01-07 16:12] VITALS: TEMP 98.1
[2025-01-07 20:23] VITALS: BP 139/48; TEMP 98.7; O2SAT 98
[2025-01-08 08:12] VITALS: BP 155/72; TEMP 98.1; O2SAT 96
[2025-01-08] MEDS: CLONAZEPAM 1 MG TABLET PO SCH (08:17)
[2025-01-08] MEDS ORDERED: CLONAZEPAM 0.5 MG TABLET PO SCH (09:00)
[2025-01-08 17:06] VITALS: BP 132/69; TEMP 98.1; O2SAT 96
[2025-01-08 19:42] VITALS: BP 129/55; TEMP 98; O2SAT 97
[2025-01-09 08:11] VITALS: BP 126/69; TEMP 98.2; O2SAT 96
[2025-01-09 16:00] VITALS: BP 125/71; TEMP 98.2; O2SAT 98
[2025-01-09 20:00] VITALS: BP 113/47; TEMP 98.3; O2SAT 95
[2025-01-10 07:56] VITALS: BP 145/46; TEMP 98; O2SAT 98
[2025-01-10] MEDS: risperiDONE 2 MG TABLET PO SCH (09:02)
[2025-01-10 15:34] VITALS: BP 114/47; TEMP 98; O2SAT 95
[2025-01-10 20:00] VITALS: BP 132/60; TEMP 98; O2SAT 88
[2025-01-11 08:12] VITALS: BP 146/61; TEMP 98; O2SAT 96
[2025-01-11] MEDS: CLONAZEPAM 1 MG TABLET PO SCH (09:02)
[2025-01-11 16:28] VITALS: BP 114/47; TEMP 98; O2SAT 95
[2025-01-11 19:37] VITALS: BP 146/61; TEMP 98.7; O2SAT 96
[2025-01-12 08:45] VITALS: BP 140/71; TEMP 98; O2SAT 96
[2025-01-12 16:06] VITALS: BP 117/45; TEMP 98; O2SAT 88
[2025-01-12 20:00] VITALS: BP 134/51; TEMP 97.1
[2025-01-13 08:10] VITALS: BP 139/61; TEMP 98; O2SAT 95
[2025-01-13 16:58] VITALS: BP 109/67; TEMP 98.7; O2SAT 96
[2025-01-13 20:00] VITALS: BP 136/93; TEMP 98.1; O2SAT 94
[2025-01-14 07:55] VITALS: BP 148/47; TEMP 97.2; O2SAT 97
[2025-01-14 16:00] VITALS: BP 139/59; TEMP 97.6; O2SAT 97
[2025-01-14 20:15] VITALS: BP 140/54; TEMP 97.4; O2SAT 96
[2025-01-15 08:00] VITALS: BP 137/47; TEMP 98.6; O2SAT 93
== END 2025-01-15 15:00 | DRG 885 ==
LOC: GPS 18:39
PROVIDERS: ADMIT Psychiatry & Neurology Psychiatry; ATTEND Nurse Practitioner Family
DX: F25.0 Schizoaffective disorder, bipolar type (principal); F03.93 Unspecified dementia, unspecified severity, with mood disturbance; F02.84 Dementia in other diseases classified elsewhere, unspecified severity, with anxiety; F03.94 Unspecified dementia, unspecified severity, with anxiety; G93.40 Encephalopathy, unspecified; E78.5 Hyperlipidemia, unspecified; K21.9 Gastro-esophageal reflux disease without esophagitis; I10 Essential (primary) hypertension; R79.89 Other specified abnormal findings of blood chemistry; L30.9 Dermatitis, unspecified; G40.909 Epilepsy, unspecified, not intractable, without status epilepticus; J44.9 Chronic obstructive pulmonary disease, unspecified; Z79.899 Other long term (current) drug therapy
CPT/HCPCS: 36415; 80164; J2358; J3490